=== PATIENT | male | born 1995 | race Caucasian/White ===

== ENCOUNTER 2017-02-05 14:34 | Emergency (ER) | payer MEDICAID ==
[~2017-02-05] VITALS: Ht 152.4 cm; Wt 58.0 kg
[2017-02-05 14:36] VITALS: Ht 152.4 cm; Wt 58.0 kg
[2017-02-05] MEDS ORDERED: ONDANSETRON 4 MG INJ IV STA (16:15)
[2017-02-05] MEDS ORDERED: morphine 4 MG/ML VIAL IV STA (16:15)
[2017-02-05] MEDS ORDERED: SOD CHLORIDE 0.9% 1,000 ML IV STA (16:15)
--- NOTE | 2017-02-05 17:20 | RADRPT ---
PROCEDURE: CT KUB. CLINICAL INDICATION: Left lower quadrant abdominal pain times 2 days TECHNIQUE: CT KUB (Renal Stone Survey) without contrast was performed on a [employer] volumetric [address] scanner. No IV contrast was administered. 3-D coronal reformatted images were obtained from the axial source images. CTDI: 8.4 mGy DLP: 462 mGy-cm One or more of the following dose reduction techniques were used: Automated exposure control. Adjustment of the mA and/or kV according to patient size. Use of iterative reconstruction technique. COMPARISON: No prior studies are available for comparison. FINDINGS: Limited evaluation of the lung bases are clear. The liver, spleen, bilateral adrenal glands, gallbladder, and pancreas are normal-appearing. Bilateral kidneys are normal-appearing without hydronephrosis nor nephrolithiasis. Urinary bladder is grossly normal. The small and large bowel are thin-walled and nondilated without evidence for obstruction. Normal appendix. The prostate gland is not enlarged. No free air, free fluid, mesenteric stranding, nor abdominal pelvic adenopathy by imaging size crite charlie. Abdominal aorta is normal in caliber. No suspicious osseous lesions or acute fractures. IMPRESSION: No acute intra-abdominal process. Normal appendix. No intra-abdominal inflammatory changes. Physician Rachel Date Time Electronically viewed and signed by Physician Rachel on 02/05/2017 17:19 ML/
[2017-02-05 17:34] LABS: BASOPHIL # 0.1 10^3/ul (0.0-0.1); BASOPHILS % 0.8 % (0.0-2.0); EOSINOPHILS # 0.2 10^3/ul (0.0-0.5); EOSINOPHILS % 1.8 % (0.0-7.0); HEMATOCRIT 47.4 % (42.0-52.0); HEMOGLOBIN 16.4 g/dl (14.0-18.0); LYMPHOCYTES # 3.2 10^3/ul (0.8-2.9); LYMPHOCYTES % 32.1 % (15.0-51.0); MEAN CORPUSCULAR HEMOGLOBIN 30.8 pg (29.0-33.0); MEAN CORPUSCULAR HGB CONC 34.6 g/dl (32.0-37.0); MEAN CORPUSCULAR VOLUME 89.1 fl (82.0-101.0); MEAN PLATELET VOLUME 9.9 fl (7.4-10.4); MONOCYTE # 1.1 10^3/ul (0.3-0.9); MONOCYTES % 11.1 % (0.0-11.0); NEUTROPHIL # 5.4 10^3/ul (1.6-7.5); NEUTROPHILS % 53.8 % (39.0-77.0); PLATELET COUNT 272 10^3/UL (140-415); RED BLOOD COUNT 5.32 10^6/ul (4.70-6.10); RED CELL DISTRIBUTION WIDTH 12.5 % (11.5-14.5); WHITE BLOOD COUNT 10.1 10^3/ul (4.8-10.8)
[2017-02-05 17:41] LABS: ADD UMIC NO; UR ASCORBIC ACID NEGATIVE (NEGATIVE); UR BILIRUBIN (Dip) NEGATIVE (NEGATIVE); UR BLOOD (Dip) NEGATIVE (NEGATIVE); UR CLARITY CLEAR (CLEAR); UR COLOR YELLOW (YELLOW); UR GLUCOSE (Dip) NEGATIVE (NEGATIVE); UR KETONES (Dip) NEGATIVE (NEGATIVE); UR LEUKOCYTE ESTERASE (Dip) NEGATIVE Leu/ul (NEGATIVE); UR NITRITE (Dip) NEGATIVE (NEGATIVE); UR SPECIFIC GRAVITY (Dip) 1.016 (1.003-1.030); UR TOTAL PROTEIN (Dip) NEGATIVE (NEGATIVE); UR UROBILINOGEN (Dip) NEGATIVE (NEGATIVE)
[2017-02-05 17:58] LABS: ALBUMIN 4.9 g/dl (3.3-4.9); ALBUMIN/GLOBULIN RATIO 1.44; BILIRUBIN,INDIRECT 0.8 mg/dl (0-1.1); BILIRUBIN,TOTAL 0.8 mg/dl (0.2-1.3); CALCIUM 9.8 mg/dl (8.4-10.2); CREATININE 0.96 mg/dl (0.61-1.24); TOTAL PROTEIN 8.3 g/dl (6.1-8.1)
[2017-02-05] MEDS ORDERED: ONDA-43 PO (18:10)
[2017-02-05] MEDS ORDERED: DICY10CA60 PO (18:11)
--- NOTE | 2017-02-05 18:47 | ERD ---
ER Documentation Chief Complaint Date/Time DATE: 02/05/17 TIME: 18:42 Chief Complaint ap since last night HPI This is a 21-year-old male presents to the ER with left lower quadrant pain that started last night. Per patient he had nausea and nonbilious nonbloody vomiting. He does not have any diarrhea he denies any constipation. Denies any fevers or chills. Patient states that he has decreased appetite. He denies any testicular pain or swelling. ROS 12 point review of systems was done, all negative except per HPI. Medications Home Meds Active Scripts Dicyclomine Hcl* (Bentyl*) 10 Mg Capsule, 10 MG PO QID for 7 Days, CAP Prov:GILES,MURIEL C 02/05/17 Ondansetron Hcl* (Zofran*) 4 Mg Tab, 4 MG PO Q4H Y for NAUSEA AND OR VOMITING for 5 Days, TAB Prov:GILES,MURIEL C 02/05/17 Allergies Allergies: Coded Allergies: No Known Allergy (Unverified , 02/05/17) PMhx/Soc Medical and Surgical Hx: pt denies Medical Hx, pt denies Surgical Hx History of Surgery: No Anesthesia Reaction: No Hx Neurological Disorder: No Hx Respiratory Disorders: No Hx Cardiac Disorders: No Hx Psychiatric Problems: No Hx Miscellaneous Medical Probl: No Hx Alcohol Use: Yes (SOCIALLY) Hx Substance Use: No Hx Tobacco Use: No Smoking Status: Never smoker Physical Exam Vitals Vital Signs Date Time Temp Pulse Resp B/P Pulse Ox O2 Delivery O2 Flow Rate FiO2 02/05/17 14:36 98.1 84 18 120/84 99 Physical Exam GENERAL: The patient is well developed and appropriate for usual state of health , in no apparent distress. HEENT: Atraumatic. CHEST: Clear to auscultation bilaterally. There are no rales, wheezes or rhonchi. HEART: Regular rate and rhythm. No murmurs, clicks, rubs or gallops. ABDOMEN: Soft, nondistended. Good bowel sounds. No rebound or guarding. No gross peritonitis. No gross organomegaly or masses. No Crisostomo sign or McBurney point tenderness. The left lower quadrant. BACK: No midline or flank tenderness. NEURO: Alert and oriented. SKIN: There is no apparent rash or petechia. The skin is warm and dry. Result Diagram: 02/05/17 1632 02/05/17 1632 Results 24 hrs Laboratory Tests Test 02/05/17 16:30 02/05/17 16:32 Urine Color YELLOW Urine Clarity CLEAR Urine pH 5.0 Urine Specific Hildreth 1.016 Urine Ketones NEGATIVEmg/dL Urine Nitrite NEGATIVEmg/dL Urine Bilirubin NEGATIVEmg/dL Urine Urobilinogen NEGATIVEmg/dL Urine Leukocyte Esterase NEGATIVELeu/ul Urine Hemoglobin NEGATIVEmg/dL Urine Glucose NEGATIVEmg/dL Urine Total Protein NEGATIVEmg/dl White Blood Count 10.110^3/ul Red Blood Count 5.3210^6/ul Hemoglobin 16.4g/dl Hematocrit 47.4% Mean Corpuscular Volume 89.1fl Mean Corpuscular Hemoglobin 30.8pg Mean Corpuscular Hemoglobin Concent 34.6g/dl Red Cell Distribution Width 12.5% Platelet Count 03656^3/UL Mean Platelet Volume 9.9fl Neutrophils % 53.8% Lymphocytes % 32.1% Monocytes % 11.1% Eosinophils % 1.8% Basophils % 0.8% Nucleated Red Blood Cells % 0.0/100WBC Neutrophils # 5.410^3/ul Lymphocytes # 3.210^3/ul Monocytes # 1.110^3/ul Eosinophils # 0.210^3/ul Basophils # 0.110^3/ul Nucleated Red Blood Cells # 0.010^3/ul Sodium Level 141mmol/L Potassium Level 4.0mmol/L Chloride Level 102mmol/L Carbon Dioxide Level 29mmol/L Anion Gap 14 Blood Urea Nitrogen 19mg/dl Creatinine 0.96mg/dl Glucose Level 78mg/dl Calcium Level 9.8mg/dl Total Bilirubin 0.8mg/dl Direct Bilirubin 0.00mg/dl Indirect Bilirubin 0.8mg/dl Aspartate Amino Transf (AST/SGOT) 41IU/L Alanine Aminotransferase (ALT/SGPT) 43IU/L Alkaline Phosphatase 85IU/L Total Protein 8.3g/dl Albumin 4.9g/dl Globulin 3.40g/dl Albumin/Globulin Ratio 1.44 Lipase 83U/L Current Medications Medications (Trade) Dose Ordered Sig/Lindsay Route PRN Reason Start Time Stop Time Status Last Admin Dose Admin Sodium Chloride (NS) 1,000 ml @ 1,000 mls/hr Q1H STAT IV 02/05/17 16:15 02/05/17 17:14 DC 02/05/17 16:29 Morphine Sulfate (morphine) 4 mg ONCE STAT IV 02/05/17 16:15 02/05/17 16:19 DC 02/05/17 16:29 Ondansetron HCl (Zofran Inj) 4 mg ONCE STAT IV 02/05/17 16:15 02/05/17 16:19 DC 02/05/17 16:28 [id number] [address] [id number] Radiology Main Line: [phone] DIAGNOSTIC IMAGING REPORT Patient: GRABIEL GARZA : 1995 Age: 21 Sex: M MR #: [id number] DOS: 02/05/17 1615 Ordering MD: MURIEL SKAGGS PA-C [facility] Room/Bed: PROCEDURE: CT KUB. CLINICAL INDICATION: Left lower quadrant abdominal pain times 2 days TECHNIQUE: CT KUB (Renal Stone Survey) without contrast was performed on a [employer] volumetric [address] scanner. No IV contrast was administered. 3-D coronal reformatted images were obtained from the axial source images. CTDI: 8.4 mGy DLP: 462 mGy-cm One or more of the following dose reduction techniques were used: Automated exposure control. Adjustment of the mA and/or kV according to patient size. Use of iterative reconstruction technique. COMPARISON: No prior studies are available for comparison. FINDINGS: Limited evaluation of the lung bases are clear. The liver, spleen, bilateral adrenal glands, gallbladder, and pancreas are normal-appearing. Bilateral kidneys are normal-appearing without hydronephrosis nor nephrolithiasis. Urinary bladder is grossly normal. The small and large bowel are thin-walled and nondilated without evidence for obstruction. Normal appendix. The prostate gland is not enlarged. No free air, free fluid, mesenteric stranding, nor abdominal pelvic adenopathy by imaging size criteria. Abdominal aorta is normal in caliber. No suspicious osseous lesions or acute fractures. IMPRESSION: No acute intra-abdominal process. Normal appendix. No intra-abdominal inflammatory changes. Bautista Falk, Physician Date Time Electronically viewed and signed by Bautista Falk, Physician on 02/05/2017 17 :19 ML/ CC: MURIEL SKAGGS Procedures/MDM Differential diagnosis includes but is not limited to appendicitis, hernia, colitis, diverticulitis, Crohn's disease, IBS, testicular torsion, UTI, constipation, obstruction ,epididymitis. This is a 21-year-old male presents to the ER with left lower quadrant pain that started last night. At this time there is no evidence of acute abdominal etiology. Patient's physical examination is benign. Afebrile and extremely well-appearing. Patient will be treated for his pain with and Zofran for his nausea. Patient is to follow-up with his primary care doctor within 1-2 days or return to ER sooner if symptoms worsen. My medical decision making shared with the patient he understands and agrees with plan. Departure Diagnosis: Primary Impression: Abdominal pain Condition: Stable Patient Instructions: Abdominal Pain Additional Instructions: Call your primary care doctor TOMORROW for an appointment during the next 1-2 days.See the doctor sooner or return here if your condition worsens before your appointment time. MURIEL SKAGGS Feb 05, 2017 18:47
[2017-02-05 19:25] VITALS: BP 110/68; PULSE 65; RESP 18; TEMP 97.8
== END 2017-02-05 19:30 | disposition home or self-care (01) ==
LOC: FTE 14:34
DX: R10.32 Left lower quadrant pain (principal); R11.2 Nausea with vomiting, unspecified
CPT/HCPCS: 36415; 74176; 80053; 81003; 83690; 85025; 96361; 96374; 96375; J2270; J2405; J7030; Z7502

== ENCOUNTER 2017-06-03 21:10 | Emergency (ER) | END 2017-06-04 03:41 | disposition home or self-care (01) ==

== ENCOUNTER 2017-12-19 22:24 | Emergency (ER) | END 2017-12-20 04:36 | disposition home or self-care (01) ==